=== PATIENT | female | born 1990 | race Caucasian/White ===

== ENCOUNTER → 2018-03-02 13:25 | Observation (INO) ==
[2018-03-02 08:36] LABS: Bilirubin,Urine Negative (Negative); Blood,Urine Negative (Negative); Clarity,Urine Cloudy (Clear); Color,Urine Yellow (Yellow); Glucose,Urine (UA) Normal (Normal); Ketones,Urine Negative (Negative); Leukocyte Esterase,Urine Large (Negative); Nitrite,Urine Negative (Negative); Protein,Urine Negative (Neg-Trace); Specific Gravity,Urine 1.006 (1.010-1.025); Urobilinogen,Urine Normal (Normal)
[2018-03-02 08:37] LABS: Bacteria,Urine Moderate per hpf (None-Few); Hyaline Casts,Urine None Seen per lpf (None-Few); RBC,Urine 0-3 per hpf (0-3); Squamous Epithelial Cell,Urine Many per lpf (None-Few); WBC,Urine TNTC per hpf (0-3)
[2018-03-02 08:45] LABS: Amphetamine Screen,Urine Negative ng/mL (Cutoff=1000); Barbiturate Screen,Urine Negative ng/mL (Cutoff=200); Benzodiazepines Screen,Urine Negative ng/mL (Cutoff=200); Cannabinoid Screen,Urine Negative ng/mL (Cutoff = 50); Cocaine Screen,Urine Negative ng/mL (Cutoff= 300); Opiate Screen,Urine Negative ng/mL (Cutoff=300); Phencyclidine Screen,Urine Negative ng/mL (Cutoff=25)
--- NOTE | 2018-03-02 09:12 | OB/GYN Progress Note ---
Date of Encounter: 03/02/18 Time of Encounter: 09:10 - Assessment and Plan (1) 29 weeks gestation of Current Visit: Yes Status: Acute Follow up as scheduled labor precautions given Discharge home (2) NST (non-stress test) reactive on surveillance Current Visit: Yes Status: Acute (3) uterine contractions in third trimester, antepartum Current Visit: Yes Status: Acute FFN: negative Fern negative Vaginosis panel: + for yeast Urine studies - UTI Antibiotics and vaginal antifungal cream (4) UTI (urinary tract infection) during Current Visit: Yes Status: Acute Macrobid 100mg BID x 5 days Qualifiers: Trimester: third trimester Qualified Code(s): O23.43 - Unspecified infection of urinary tract in , third trimester (5) Yeast infection of the vagina Current Visit: Yes Status: Acute Monistat 3-day treatment Subjective - Subjective Principal diagnosis: contractions Interval history: Ms. Ledesma is a 27 year old at 29 weeks gestation who presents who c/o contractions starting last night and continuing throughout the night. She states they are about 3-5 minutes apart and not painful but noticeable. She reports +FM and denies vb, lof. She sees Dr. Arita for her care. Antepartum ROS: new complaints, movement normal, contractions, no loss of fluid, no vaginal bleeding Objective - Vital Signs Vital Signs: Intake and Output 03/01/18 03/02/18 03/02/18 23:59 07:59 15:59 Other: Weight 69.4 kg Patient Weight 03/02/18 23:59 Weight 69.4 kg - Exam Auscultation: bilateral: normal Abdomen: Present: normal appearance, soft, gravid Uterus: Present: normal, firm Cervical dilation: 0 Cervix effacement: 30 station: -4 - Labs Labs: Abnormal lab results POC Glucose 111 mg/dL (70-99) H 03/02/18 08:13 Urine Clarity Cloudy (Clear) A 03/02/18 08:16 Ur Specific [place] 1.006 (1.010-1.025) L 03/02/18 08:16 Ur Leukocyte Esterase Large (Negative) H 03/02/18 08:16 Urine Microscopic WBC TNTC per hpf (0-3) H 03/02/18 08:16 Ur Squamous Epith Cells Many per lpf (None-Few) H 03/02/18 08:16 Urine Bacteria Moderate per hpf (None-Few) H 03/02/18 08:16 Ur Culture Indicated? NO. (NO) A 03/02/18 08:16
[2018-03-02 10:10] LABS: Candida DNA ***DETECTED*** (Not Detect); Gardnerella DNA Not Detected (Not Detect); Trichomonas DNA Not Detected (Not Detect)
[~2018-03-02 13:25] MED LIST: hydrOXYzine pamoate 25 MG CAPSULE PO STA
== END | disposition home or self-care (01) ==
LOC: 1NENULAB
PROVIDERS: ADMIT Student in an Organized Health Care Education/Training Program; ATTEND Student in an Organized Health Care Education/Training Program

== ENCOUNTER → 2018-04-05 19:20 | Observation (INO) ==
[2018-04-05 16:23] LABS: Bilirubin,Urine Negative (Negative); Blood,Urine Negative (Negative); Clarity,Urine Clear (Clear); Color,Urine Yellow (Yellow); Glucose,Urine (UA) Normal (Normal); Ketones,Urine Negative (Negative); Leukocyte Esterase,Urine Moderate (Negative); Nitrite,Urine Negative (Negative); PH,Urine 6.5 pH Units (5.0-8.0); Protein,Urine Negative (Neg-Trace); Specific Gravity,Urine 1.015 (1.010-1.025); Urobilinogen,Urine Normal (Normal)
[2018-04-05 16:24] LABS: Bacteria,Urine None Seen per hpf (None-Few); Hyaline Casts,Urine None Seen per lpf (None-Few); RBC,Urine 0-3 per hpf (0-3); Squamous Epithelial Cell,Urine Many per lpf (None-Few)
[2018-04-05 16:37] LABS: Amphetamine Screen,Urine Negative ng/mL (Cutoff=1000); Barbiturate Screen,Urine Negative ng/mL (Cutoff=200); Benzodiazepines Screen,Urine Negative ng/mL (Cutoff=200); Cannabinoid Screen,Urine Negative ng/mL (Cutoff = 50); Cocaine Screen,Urine Negative ng/mL (Cutoff= 300); Opiate Screen,Urine Negative ng/mL (Cutoff=300); Phencyclidine Screen,Urine Negative ng/mL (Cutoff=25)
--- NOTE | 2018-04-05 17:31 | OB/GYN Progress Note ---
Date of Encounter: 04/05/18 Time of Encounter: 17:27 - Assessment and Plan (1) 34 weeks gestation of Current Visit: Yes Status: Acute Continue routine PNC as scheduled labor precautions given Discharge home (2) uterine contractions in third trimester, antepartum Current Visit: Yes Status: Acute Increase hydration UA-negative Vaginosis panel- + for angélica - rx for clotrimazole cream given Subjective - Subjective Principal diagnosis: contractions Interval history: Ms. Ledesma is a 27-year-old at 34 weeks who presents with c/o contractions happening 3-10 minutes apart since last night. She endorses good fm and denies vb, lof. Antepartum ROS: movement normal, contractions, no loss of fluid, no vaginal bleeding Objective - Vital Signs Vital Signs: Intake and Output 04/05/18 04/05/18 04/05/18 07:59 15:59 23:59 Other: Weight 71.668 kg Patient Weight 04/05/18 23:59 Weight 71.668 kg - Exam FHR: category 1 FHR comments: RNST Auscultation: bilateral: normal Abdomen: Present: normal appearance, soft, gravid Uterus: Present: normal, firm Cervical dilation: FT per RN Cervix effacement: thick per RN station: -3 - Labs Labs: Abnormal lab results Ur Leukocyte Esterase Moderate (Negative) H 04/05/18 16:05 Urine Microscopic WBC 5-15 per hpf (0-3) H 04/05/18 16:05 Ur Squamous Epith Cells Many per lpf (None-Few) H 04/05/18 16:05 Ur Culture Indicated? NO. (NO) A 04/05/18 16:05
[~2018-04-05 19:20] MED LIST changes: +NIFEdipine XL (24 HR) 30 MG TAB.ER.24 PO SCH; -hydrOXYzine pamoate 25 MG CAPSULE PO STA
[2018-04-05 19:44] LABS: Candida DNA ***DETECTED*** (Not Detect); Gardnerella DNA Not Detected (Not Detect); Trichomonas DNA Not Detected (Not Detect)
== END | disposition home or self-care (01) ==
LOC: 1NENULAB
PROVIDERS: ADMIT Obstetrics & Gynecology; ATTEND Obstetrics & Gynecology

== ENCOUNTER 2018-04-20 01:41 | Inpatient (IN) ==
[~2018-04-20 01:41] MED LIST changes: +*HR* Nalbuphine 10 MG/ML AMPUL IVP PRN; +Famotidine 20 MG/2 ML VIAL IVP PRN; +Lidocaine 1% 20 ML MDV INFILT PRN; +Metoclopramide 10 MG/2 ML VIAL IVP PRN; -NIFEdipine XL (24 HR) 30 MG TAB.ER.24 PO SCH; +Naloxone 0.4 MG/ML INJ IVP PRN; +Ringers Solution, Lactated 1,000 ML IVC SCH
[2018-04-20 01:55] LABS: Amphetamine Screen,Urine Negative ng/mL (Cutoff=1000); Barbiturate Screen,Urine Negative ng/mL (Cutoff=200); Benzodiazepines Screen,Urine Negative ng/mL (Cutoff=200); Cannabinoid Screen,Urine Negative ng/mL (Cutoff = 50); Cocaine Screen,Urine Negative ng/mL (Cutoff= 300); Opiate Screen,Urine Negative ng/mL (Cutoff=300); Phencyclidine Screen,Urine Negative ng/mL (Cutoff=25)
[2018-04-20] MEDS ORDERED: Clindamycin 900 MG/50 ML 900 MG/50 ML IV.SOLN IVPB SCH (02:00)
[2018-04-20 02:39] LABS: Basophils % 0.2 %; Eosinophils # 0.2 K/mcL (0.0-0.6); Eosinophils % 1.4 %; Hematocrit 36.8 % (35.3-44.9); Immature Granulocytes % 1.1 % (0-4); Lymphocytes # 2.6 K/mcL (0.6-4.6); Lymphocytes % 17.1 %; Mean Corpuscular HGB Conc 35.3 g/dL (31.6-35.5); Mean Corpuscular Volume 87.8 fL (83.0-100.0); Mean Platelet Volume 9.3 fL (9.4-12.4); Monocytes # 1.1 K/mcL (0.0-1.3); Monocytes % 7.2 %; Neutrophils # 10.9 K/mcL (1.6-8.9); Platelet Count 228 K/mcL (140-400); Red Blood Count 4.19 M/mcL (3.82-4.97); Red Cell Distribution Width 12.9 % (11.5-14.5)
--- NOTE | 2018-04-20 02:56 | OB/GYN History & Physical ---
Date of Encounter: 04/20/18 Time of Encounter: 02:52 Assessment and Plan (1) 36 weeks gestation of Current visit: Yes Status: Acute (2) SROM (spontaneous rupture of membranes) Current visit: Yes Status: Acute Admit to labor and delivery Patient has started to have contractions we will do expectant management at this time GBS unknown will start vancomycin 1 g every 12 hours Patient may have intermittent monitoring Anticipate (3) GBS screening not performed Current visit: Yes Status: Acute History of Present Illness Chief complaint: SROM HPI: Ms. Ledesma is a 27 year old female 36+3 weeks gestation cents to triage with complaints of rupture membranes at 11:30 PM last night. Patient reports good movement, denies vaginal bleeding. Uncomplicated course with care of Dr. Arita. Labs: O-, rubella nonimmune, varicella immune, GBS unknown, all other serologies negative Past Med Surg Social Fam HX - Past Medical History Medical history: no medical history Psychiatric history: no psych history - Past Surgical History Surgical History: other Additional surgical history: wisdom teeth - Social History Smoking Status: Never smoker Alcohol use: none Drug use: none - Family History Mother Living Status: Still Living Hx Family Cardiac Disorders: No Hx Family Respiratory Disorders: No Hx Family Cancer: No Hx Family GI Disorders: No Hx Family Endocrine Disorder: No Hx Family Neuromuscular Disorders: No Hx Family Neurologic Disorders: No Hx Family HEENT Disorders: No Hx Family Autoimmune Disorders: No Obstetrical History - Pregnancies : 1 Para: 0 Term: 0 : 0 Ab's: 0 Livin Medications and Allergies Vit Calc,Iron,Folic [ Vitamins] 1 tab PO DAILY 03/02/18 [ History] 3 Allergy/AdvReac Type Severity Reaction Status Date / Time Amoxicillin Allergy Rash Verified 04/20/18 01:19 Exam - Constitutional Constitutional: well developed, well nourished, no acute distress, average body habitus - Neck Neck exam: full ROM - Lungs Respiratory exam: CTAB - Cardiovascular Cardiovascular exam: RRR - Abdomen Abdomen: Present: gravid, non tender - Extremities Extremities exam: normal capillary refill, normal inspection Results Result Diagrams: 04/20/18 02:10 Abnormal lab results WBC 14.9 K/mcL (4.3-11.1) H 04/20/18 02:10 MPV 9.3 fL (9.4-12.4) L 04/20/18 02:10 Neutrophils # 10.9 K/mcL (1.6-8.9) H 04/20/18 02:10 All other labs normal. - VTE Reasons for not Prescribing Prophylaxis: Treatment not Indicated - Low risk for VTE
--- NOTE | 2018-04-20 06:57 | Anesthesia Evaluation PreOp ---
Date of Encounter: 04/20/18 Time of Encounter: 06:49 - Past History Planned Operation: vaginal del, G1 SROM Cardiac History: Denies any Significant Hx Pulmonary History: Denies Any Significant HX MANUFACTURING PROCESS ENGINEER History: Denies Any Significant HX Other Medical History: Denies Any Significant HX Anesthesia History: No Prior Anesthetic Complications, Past Anesthesia (denies family hx.) Alcohol Use: none Drug use: none Medications and Allergies Vit Calc,Iron,Folic [ Vitamins] 1 tab PO DAILY 03/02/18 [ History] 3 Allergy/AdvReac Type Severity Reaction Status Date / Time Amoxicillin Allergy Rash Verified 04/20/18 01:19 Anesthesia Results - Labs 04/20/18 02:10 Anesthesia Exam - HEENT Pupil (Motor): Pupils equal Mallampati: II Teeth: Normal Oral Opening: Greater than 3 - MANUFACTURING PROCESS ENGINEER LOC: Oriented MANUFACTURING PROCESS ENGINEER Motor: Normal RUE, Normal LUE, Normal RLE, Normal LLE, Normal Face MANUFACTURING PROCESS ENGINEER Sensory: Normal: RUE, LUE, RLE, LLE, Face - Cardiac Rhythm: Regular Murmur: None - Pulmonary Breath Sounds: bilateral Clear Respiratory Effort: Symmetrical Anesthesia Assess/Plan ASA Score: 2 Modified [place] Scale for Level of Consciousness: Cooperative, oriented, and tranquil Anesthetic Plan: General, Regional Monitoring Plan: Standard Monitors Recovery Plan: PACU
[2018-04-20] MEDS ORDERED: EPHEDrine 50 MG/ML VIAL IVP PRN (06:58)
[2018-04-20] MEDS ORDERED: Epidural Premix (fent/bupiv) 110 ML EP SCH (07:00)
--- NOTE | 2018-04-20 09:08 | OB Labor Progress Note ---
Date of Encounter: 04/20/18 Time of Encounter: 09:06 Labor Progress Note - Subjective Subjective: Patient reports contractions feel like they are less intense. She would like cervical exam to be evaluated. Patient has been off monitors for intermittent monitoring - Cervix Cervix: 2/90/-1 - Heart Tones Heart Tones: 140 bpm - [place]: irregular per palpation - Interventions Interventions: SVE - Plan Plan: Continue labor management Will augment labor anticipate SVE
[2018-04-20] MEDS ORDERED: Oxytocin 20 units/ LR 1000 mL 20 UNIT/1,000 ML BAG IVC ONE (09:41)
[2018-04-20] MEDS ORDERED: Oxytocin 20 units/ LR 1000 mL 20 UNIT/1,000 ML BAG IVC SCH (10:00)
--- NOTE | 2018-04-20 12:00 | OB Labor Progress Note ---
Date of Encounter: 04/20/18 Time of Encounter: 11:58 Labor Progress Note - Subjective Subjective: Patient requesting FSE so she can move more in labor. Discussed risks and benefits. Patient denies any questions or concerns. - Cervix Cervix: 3.5/90/-1 - Heart Tones Heart Tones: 140 bpm moderate variability +15x15 accels no decels noted. Cat 1 tracing. - [place]: 2-3 min apart - Interventions Interventions: SVE, FSE applied. Patient tolerated well. - Plan Plan: continue labor management anticipate SVE
[2018-04-20] MEDS ORDERED: Lidocaine -MPF 1% 5 ML AMPUL ONE (14:12)
--- NOTE | 2018-04-20 14:50 | Anesthesia Procedures ---
Date of Encounter: 04/20/18 Time of Encounter: 14:49 Procedures: Anesthesia - Epidural/Spinal Patient ID/Chart reviewed: Yes Patient examined: Yes OB Eval: Gestational age: 36 OB Eval: : 1 OB Eval: Hx Para: 0 OB Eval: Dilated at (cm): 4 OB Eval: Contractions: Non-stressed pattern Consent Obtained: Yes Supplemental Oxygen: None/Room Air Site Prep: Aseptic Technique, Sterile prep and drape, Povidone-Iodine 1% Patient position: upright Local Anesthetic: Lidocaine 1% Amount of Local Anesthetic used: 3 Touhy Needle Gauge: 18 Touhy Needle Depth (cm): 8 Catheter Depth at Skin (cm): 20 Test Dose (1.5% Lido + Epi): Volume given (mls): 5 Test Dose Result: Negative Loading Dose: Other: 10mls of epidural pharm bag premix Loading Dose Administered: Thru Touhy Needle Infusion Med: 0.125% Bupivacaine w/ 2 mcg/ml Fentanyl Infusion Rate (mls/hr): 15 ([id number]) Catheter Secured in Place: Tegaderm, Tape Interspace Used: L4-L5 Loss of Resistance (IZZY): Yes Blood: No CSF: No Paresthesia: No Procedure: pt tolerated procedure well. no complications. vss. fhr stable.
--- NOTE | 2018-04-20 15:46 | OB Labor Progress Note ---
Date of Encounter: 04/20/18 Time of Encounter: 15:44 Labor Progress Note - Subjective Subjective: Patient resting comfortable with epidural in place. Grijalva catheter draining clear yellow urine. - Cervix Cervix: 7/100/0 - Heart Tones Heart Tones: 125 bpm moderate variability +15x15 accels no decels noted. Cat. 1 tracing. - [place]: 2-2.5 min apart - Interventions Interventions: SVE, Patient repositioned with peanut ball. - Plan Plan: Continue labor management. anticipate
--- NOTE | 2018-04-20 20:41 | OB/GYN Procedure Note ---
Delivery - Delivery Date: 04/20/18 Provider: Noelle Camara Intrapartum events: none, prolonged labor- > = 20hr Delivery induction: none Delivery augmentation: pitocin Delivery monitor: external FHT, external uterine, internal FHT Anesthesia: epidural Quantitated Blood Loss: 200 - Infant (s) Infant A Infant Delivery Date: 04/20/18 Delivery Time: 20:18 Presentation: vertex Position: LUCI Route of delivery: Gender: Female Viability: Viable Pounds: 6 Ounces: 7 Weight Gram: 2029 kg at 1 minute: 8 at 5 mins: 9 Shoulder Dystocia: not encountered Specimens collected: cord blood Placenta: spontaneous Cord: 3 umbilical vessels - Repair Episiotomy: none Laceration Description: Periurethral (Right periurethral repaired with 4-0 Vicryl) - Complications Delivery complications: none - Disposition Mom disposition: stable in LDR disposition: stable in LDR - Comments Comments: Patient progressed to complete and began pushing to viable female infant in the LUCI position. No shoulder encountered, no nuchal cord. scores 8 at one minute and 9 at five minutes, weight 6 pounds 7 ounces. placed on maternal abdomen, dried, warmed and stimulated with good cry. Cord double clamped and cut with assistance from father of the baby after pulsations ceased. Placenta delivered intact with three vessel cord. Upon perineal inspection a right periurethral laceration was found and repaired with 40 vicryl. Fundus firm and at the umbilicus, distended to right side with minimal bleeding. EBL 200 ml. Infant placed skin to skin, mother and infant stable in recovery.
[2018-04-21] MEDS ORDERED: Acetaminophen 325 MG TABLET PO PRN (00:24)
[2018-04-21] MEDS ORDERED: Measles/Mumps/Rubella Vacc 0.5 ML VIAL SQ PRN (00:24)
[2018-04-21] MEDS ORDERED: Lanolin 7 G OINT...G. TP PRN (00:24)
[2018-04-21] MEDS ORDERED: Ibuprofen 600 MG TABLET PO PRN (00:24)
[2018-04-21] MEDS ORDERED: Oxytocin 20 units/ LR 1000 mL 20 UNIT/1,000 ML BAG IVC SCH (00:24)
[2018-04-21] MEDS ORDERED: Rho Immune Globulin 1,500 UNIT SYRINGE IM PRN (00:24)
[2018-04-21 08:20] VITALS: BP 109/73
[2018-04-21] MEDS ORDERED: Prenatal Vit/FA 1 EACH TABLET PO SCH (09:00)
--- NOTE | 2018-04-21 11:00 | Discharge Summary ---
Date of Encounter: 04/21/18 Time of Encounter: 10:57 - Discharge Diagnosis (1) Vaginal delivery Priority: Primary Status: Acute Comments: Pain well controlled with by mouth pain meds Tolerating regular diet Ambulating independently Voiding independently Passing flatus but no BM yet Lochia light Discharge to guest today (2) Breast feeding status of mother Priority: Secondary Status: Acute Comments: Community resources provided - Discharge Medications Prescriptions: Ibuprofen [Motrin] 600 mg PO Q6HR PRN #30 tablet PRN Reason: Cramping Docusate [Colace] 100 mg PO BID #30 capsule Lanolin [Lansinoh] 1 appl TP TID PRN #1 tube PRN Reason: Sore Nipples Home Medications: Vit Calc,Iron,Folic [ Vitamins] 1 tab PO DAILY 03/02/18 [ History] Acetaminophen [Tylenol] 650 mg PO Q6HR PRN tablet 04/21/18 [Rx] Docusate [Colace] 100 mg PO BID #30 capsule 04/21/18 [Rx] Ibuprofen [Motrin] 600 mg PO Q6HR PRN #30 tablet 04/21/18 [Rx] Lanolin [Lansinoh] 1 appl TP TID PRN #1 tube 04/21/18 [Rx] Allergies/Adverse Reactions: 3 Allergy/AdvReac Type Severity Reaction Status Date / Time Amoxicillin Allergy Rash Verified 04/20/18 01:19 Data Procedures and tests throughout hospitalization: Laboratory Tests 04/20/18 04/20/18 04/20/18 01:30 02:10 21:05 WBC 14.9 H RBC 4.19 Hgb 13.0 Hct 36.8 MCV 87.8 MCH 31.0 MCHC 35.3 RDW 12.9 Plt Count 228 MPV 9.3 L Immature Gran % 1.1 Seg Neutrophils % 73.0 Lymphocytes % 17.1 Monocytes % 7.2 Eosinophils % 1.4 Basophils % 0.2 Neutrophils # 10.9 H Lymphocytes # 2.6 Monocytes # 1.1 Eosinophils # 0.2 Basophils # 0.0 Urine Opiates Screen Negative Ur Barbiturates Screen Negative Ur Phencyclidine Scrn Negative Ur Amphetamines Screen Negative U Benzodiazepines Scrn Negative Urine Cocaine Screen Negative U Marijuana (THC) Screen Negative Ur Drug Screen Interp See Below Baby's Blood Type O RH NEGATIVE Mother's Blood Type O RH NEGATIVE Rhogam Indicated NO Labs on day of discharge: Labs from last 24 hours 04/20/18 21:05 Baby's Blood Type O RH NEGATIVE Mother's Blood Type O RH NEGATIVE Rhogam Indicated NO Date of admission: 04/20/18 01:41 Consults: 04/21/18 00:24 Consult to Procurement Assistant [CONS] Routine Comment: Vaginal delivery, consult needed Discharging clinician: Radha Morales Anticipated date of discharge: 04/21/18 - Patient Status Disposition: Home, Self-Care Condition: Good Functional capacity at discharge: independent ambulation Overall status at discharge: patient is progressing back to baseline - Discharge Instructions Follow Up With: Thaddeus Arita DO [Partnered Physician] - - Diet and Activity Activity: increase activity as tolerated Diet: regular diet Hospital Course Reason for admission: IUP - , rupture of membranes, IUP at term Delivery: Episiotomy: none Laceration: other Other procedures: none complications: none Discharge diagnosis: delivery [place] baby: female Time Attestation: Total time spent providing and/or coordinating discharge services: Time Spent: Less than 30 minutes Exam - Constitutional Vitals: Temp Pulse Resp BP Pulse Ox 98.4 F 83 16 109/73 97 04/21/18 08:19 04/21/18 08:19 04/21/18 09:44 04/21/18 08:19 04/21/18 04:18 General appearance IM: A&O X 3 - Respiratory Respiratory exam: Present: CTAB - Cardiovascular Cardiovascular exam IM: Present: RRR, +S1, +S2 - GI/Abdominal GI/Abdominal exam IM: normal bowel sounds, no peritoneal signs - Rectal Rectal exam: deferred - Uterine Tone: Firm Uterus Position: At Umbilicus, Midline - Extremities Exam Extremities exam IM: Present: normal capillary refill, normal inspection, radial pulses palpable and symmetrical - Neurological Exam Neurological exam: alert, CN II-XII intact, normal gait, oriented X3, reflexes normal, no focal deficits, strengths equal and symetr throughout - Psychiatric Additional comments: Patient denies history of depression. Signs and symptoms of depression discussed with patient and partner and they verbalized understanding of when to seek help. - Other Additional findings: Breasts: Nipples soft, nontender. Intact without erythema
== END 2018-04-21 13:30 | disposition home or self-care (01) | DRG 775 ==
LOC: 1NENULAB → 1NENUOBS 23:25
PROVIDERS: ADMIT Advanced Practice Midwife; ATTEND Advanced Practice Midwife

== ENCOUNTER 2019-07-02 01:51 | Inpatient (IN) ==
[~2019-07-02 01:51] MED LIST changes: -Lidocaine 1% 20 ML MDV INFILT PRN; -Ringers Solution, Lactated 1,000 ML IVC SCH
[2019-07-02] MEDS ORDERED: Ringers Solution, Lactated 1,000 ML IVC SCH (02:00)
[2019-07-02 02:17] LABS: Basophils % 0.2 %; Eosinophils # 0.2 K/mcL (0.0-0.6); Eosinophils % 0.9 %; Hematocrit 35.8 % (35.3-44.9); Hemoglobin 12.6 g/dL (11.5-15.4); Immature Granulocytes % 0.6 % (0-4); Lymphocytes # 2.9 K/mcL (0.6-4.6); Lymphocytes % 18.2 %; Mean Corpuscular HGB Conc 35.2 g/dL (31.6-35.5); Mean Corpuscular Hemoglobin 30.7 pg (28.0-33.3); Mean Corpuscular Volume 87.1 fL (83.0-100.0); Mean Platelet Volume 9.2 fL (9.4-12.4); Monocytes # 1.1 K/mcL (0.0-1.3); Monocytes % 6.7 %; Neutrophils # 11.6 K/mcL (1.6-8.9); Platelet Count 224 K/mcL (140-400); Red Blood Count 4.11 M/mcL (3.82-4.97); Red Cell Distribution Width 12.9 % (11.5-14.5); Segmented Neutrophils % 73.4 %; White Blood Count 15.8 K/mcL (4.3-11.1)
--- NOTE | 2019-07-02 04:11 | OB/GYN History & Physical ---
Date of Encounter: 07/02/19 Time of Encounter: 04:19 Assessment and Plan (1) 40 weeks gestation of Current visit: Yes Status: Acute Admit for delivery (2) NST (non-stress test) reactive Current visit: Yes Status: Acute Category I FHR tracing (3) Blood type O- Current visit: Yes Status: Acute Collect cord blood and Rhogam evaluation (4) GBS (group B Streptococcus carrier), +RV culture, currently Current visit: Yes Status: Acute One dose Vancomycin given prior to delivery. History of Present Illness Chief complaint: Labor at 40w1d HPI: Ms. Ledesma is a 28 year old female at 40w1d who presents this morning in labor. She reports positive movement and denies fluid leakage and reports some bloody show since her appointment in the office yesterday. She is 6-7 cm on arrival. Blood type O- GBS positive with allergy to Amoxicillin - Vancomycin sensitive HbSAG negative Rubella Non-Immune Varicella Immune Past Med Surg Social Fam HX - Past Medical History Source: patient Medical history: no medical history Psychiatric history: no psych history - Past Surgical History Surgical History: other Additional surgical history: wisdom teeth - Social History Smoking Status: Never smoker Alcohol use: none Drug use: none Current living situation: Home - Independent Activity Level: Independent ambulation Recent Out of Country Travel Within the Last 8 Weeks: No Exposure or Possible Exposure to Illness During Travel: No - Family History Mother Living Status: Still Living Hx Family Cardiac Disorders: No Hx Family Respiratory Disorders: No Hx Family Cancer: No Hx Family GI Disorders: No Hx Family Endocrine Disorder: No Hx Family Neuromuscular Disorders: No Hx Family Neurologic Disorders: No Hx Family HEENT Disorders: No Hx Family Autoimmune Disorders: No Obstetrical History - Pregnancies : 2 Para: 1 Term: 1 : 0 Ab's: 0 Livin Medications and Allergies Vit Calc,Iron,Folic [ Vitamins] 1 tab PO DAILY 03/02/18 [History] Allergy/AdvReac Type Severity Reaction Status Date / Time Amoxicillin Allergy Rash Verified 07/02/19 01:36 Exam - Constitutional Constitutional: well developed, well nourished, no acute distress, average body habitus - HEENT HEENT: Normocephaly, Mucus Membranes Moist - Neck Neck exam: full ROM - Lungs Respiratory exam: CTAB - Cardiovascular Cardiovascular exam: RRR, +S1, +S2 - Breasts Breast: bilateral: normal - Abdomen Abdomen: Present: bowel sounds normal, gravid, non tender - Extremities Extremities exam: full ROM, normal capillary refill, normal inspection Deep Tendon Reflex Grade: 2+ Normal - Vulva Vulva: bilateral: normal - Vagina Vagina: Present: normal moisture - Cervix Dilation: 6 (Per RN exam) Station: -1 - Uterus Uterus exam: Present: normal size - Anus/Rectum Anus/Rectum: Present: normal perianal skin Results Result Diagrams: 07/02/19 02:02 Abnormal lab results WBC 15.8 K/mcL (4.3-11.1) H 07/02/19 02:02 MPV 9.2 fL (9.4-12.4) L 07/02/19 02:02 Neutrophils # 11.6 K/mcL (1.6-8.9) H 07/02/19 02:02 All other labs normal. - VTE Reasons for not Prescribing Prophylaxis: Treatment not Indicated - Low risk for VTE
[2019-07-02] MEDS ORDERED: Oxytocin 20 units/ LR 1000 mL 20 UNIT/1,000 ML BAG IVC ONE ×2 (04:19→06:51)
[2019-07-02 05:07] LABS: Rubella IgG Antibody Negative (POSITIVE); Varicella Zoster IgG Antibody Positive
[2019-07-02] MEDS ORDERED: Ibuprofen 600 MG TABLET PO ONE (05:58)
[2019-07-02 06:02] LABS: HIV-1&2 Antibody & p24 Ag Nonreactive (Nonreactive)
--- NOTE | 2019-07-02 06:10 | OB/GYN Procedure Note ---
Delivery - Delivery Date: 07/02/19 Provider: Dorys Spencer (Francis Mondragon DO PGY1) Intrapartum events: none Delivery induction: none Delivery augmentation: rupture of membranes Delivery monitor: external FHT, external uterine Anesthesia: local Quantitated Blood Loss: 300 - (s) A Infant Delivery Date: 07/02/19 Delivery Time: 05:12 Presentation: vertex Position: LUCI Route of delivery: Gender: Female Viability: Viable Pounds: 7 Ounces: 12 Weight Gram: 3.51 kg at 1 minute: 8 at 5 mins: 9 Shoulder Dystocia: not encountered Specimens collected: cord blood Placenta: spontaneous Cord: 3 umbilical vessels - Repair Episiotomy: none Laceration Description: Perineal - 2nd Degree - Complications Delivery complications: none Delivery comments: Called to room for patient with urge to push. She was ambulating in room and pushing involuntarily. SVE was 8 cm, patient was placed in hands and knees and she rapidly progressed to complete dilation. She requested an epidural but once DRIVER'S EDUCATION INSTRUCTOR arrived she was complete and she declined stating she just wanted to deliver. I was gowned and gloved and together with Francis Mondragon DO PGY1, delivered viable female over second-degree perineal laceration, repaired with 3-0 Vicryl. Infant placed on maternal abdomen for drying and stimulation. Cord clamped and cut after pulsation ceased. Spontaneous delivery of intact placenta, EBL 300 mL's. No nuchal cord, shoulder dystocia, or meconium encountered. Mother and in kangaroo care for 2 hour recovery. - Disposition Mom disposition: stable in LDR [place] disposition: stable in LDR
[2019-07-02] MEDS ORDERED: Benzocaine/Menthol 56 GM AEROSOL SPRAY TP PRN (07:57)
[2019-07-02] MEDS ORDERED: Lanolin 7 G OINT...G. TP PRN (07:57)
[2019-07-02] MEDS ORDERED: Oxytocin 20 units/ LR 1000 mL 20 UNIT/1,000 ML BAG IVC SCH (07:57)
[2019-07-02] MEDS ORDERED: Rho Immune Globulin 1,500 UNIT SYRINGE IM PRN (07:57)
[2019-07-02] MEDS ORDERED: Acetaminophen 325 MG TABLET PO PRN (07:57)
[2019-07-02] MEDS ORDERED: *HR* HYDROcodone/Acet 5/325 mg TABLET PO PRN (07:57)
[2019-07-02] MEDS: Prenatal Vit/FA 1 EACH TABLET PO SCH (11:25)
[2019-07-02] MEDS: Ibuprofen 600 MG TABLET PO PRN ×2 (11:57→19:35)
[2019-07-03] MEDS: Prenatal Vit/FA 1 EACH TABLET PO SCH (08:26)
[2019-07-03] MEDS ORDERED: Measles/Mumps/Rubella Vacc 0.5 ML VIAL SQ ONE (08:33)
[2019-07-03 09:28] VITALS: BP 114/74
--- NOTE | 2019-07-03 13:11 | Event Note ---
Date of Encounter: 07/03/19 Time of Encounter: 13:10 Curing Finisher entered room to find that patient had left prior to discharge examination.
== END 2019-07-03 12:01 | disposition home or self-care (01) | DRG 807 ==
LOC: 1NENULAB → 1NENUOBS 07:45
PROVIDERS: ADMIT Registered Nurse; ATTEND Registered Nurse

== ENCOUNTER 2022-01-23 04:22 | Inpatient (IN) ==
[~2022-01-23 04:22] MED LIST changes: -*HR* Nalbuphine 10 MG/ML AMPUL IVP PRN
[2022-01-23] MEDS ORDERED: Clindamycin 900 MG/50 ML 900 MG/50 ML IV.SOLN IVPB SCH (04:30)
[2022-01-23] MEDS ORDERED: Ringers Solution, Lactated 1,000 ML ONE (04:34)
[2022-01-23 05:18] LABS: Amphetamine Screen,Urine Negative ng/mL (Cutoff=1000); Barbiturate Screen,Urine Negative ng/mL (Cutoff=200); Basophils % 0.2 %; Benzodiazepines Screen,Urine Negative ng/mL (Cutoff=200); Cannabinoid Screen,Urine Negative ng/mL (Cutoff = 50); Cocaine Screen,Urine Negative ng/mL (Cutoff= 300); Eosinophils # 0.1 K/mcL (0.0-0.6); Eosinophils % 0.8 %; Hematocrit 39.4 % (35.3-44.9); Hemoglobin 13.6 g/dL (11.5-15.4); Immature Granulocytes % 0.8 % (0-4); Lymphocytes # 2.2 K/mcL (0.6-4.6); Lymphocytes % 15.2 %; Mean Corpuscular HGB Conc 34.5 g/dL (31.6-35.5); Monocytes # 0.8 K/mcL (0.0-1.3); Monocytes % 5.5 %; Opiate Screen,Urine Negative ng/mL (Cutoff=300); Phencyclidine Screen,Urine Negative ng/mL (Cutoff=25); Platelet Count 243 K/mcL (140-400); Red Blood Count 4.53 M/mcL (3.82-4.97); Red Cell Distribution Width 13.3 % (11.5-14.5); Segmented Neutrophils % 77.5 %; White Blood Count 14.2 K/mcL (4.3-11.1)
[2022-01-23 05:51] LABS: Influenza A PCR Negative (Negative); Influenza B PCR Negative (Negative); Resp. Syncytial Virus PCR Negative (Negative)
[2022-01-23 05:52] LABS: SARS-CoV-2 by PCR (In House) Negative (Negative)
[2022-01-23] MEDS ORDERED: Oxytocin 30 UNIT/503 ML BAG IVC ONE (07:18)
[2022-01-23] MEDS ORDERED: Oxytocin 30 UNIT/503 ML BAG IVC SCH (08:37)
[2022-01-23] MEDS ORDERED: Lanolin 7 G OINT...G. TP PRN (08:37)
[2022-01-23] MEDS ORDERED: Rho Immune Globulin 1,500 UNIT SYRINGE IM PRN (08:37)
[2022-01-23] MEDS ORDERED: Ondansetron ODT 4 MG TAB.RAPDIS SL PRN (08:37)
[2022-01-23] MEDS ORDERED: Prenatal Vit/FA 1 EACH TABLET PO SCH (09:00)
[2022-01-23] MEDS: Benzocaine/Menthol 56 GM AEROSOL SPRAY TP PRN (10:30)
[2022-01-23] MEDS: Acetaminophen 325 MG TABLET PO SCH ×2 (10:30→15:54)
[2022-01-23] MEDS: Ibuprofen 600 MG TABLET PO SCH ×2 (10:30→19:37)
[2022-01-24] MEDS: Ibuprofen 600 MG TABLET PO SCH ×2 (01:44→07:48)
[2022-01-24 02:02] VITALS: TEMP 97.9; O2SAT 98
[2022-01-24 05:24] LABS: Basophils % 0.2 %; Eosinophils # 0.2 K/mcL (0.0-0.6); Eosinophils % 1.4 %; Hematocrit 33.1 % (35.3-44.9); Immature Granulocytes % 0.7 % (0-4); Lymphocytes # 3.2 K/mcL (0.6-4.6); Lymphocytes % 21.5 %; Mean Corpuscular HGB Conc 34.7 g/dL (31.6-35.5); Mean Corpuscular Hemoglobin 31.1 pg (28.0-33.3); Mean Corpuscular Volume 89.5 fL (83.0-100.0); Mean Platelet Volume 9.2 fL (9.4-12.4); Monocytes # 0.9 K/mcL (0.0-1.3); Monocytes % 6.3 %; Neutrophils # 10.3 K/mcL (1.6-8.9); Platelet Count 224 K/mcL (140-400); Red Cell Distribution Width 13.7 % (11.5-14.5); Segmented Neutrophils % 69.9 %; White Blood Count 14.7 K/mcL (4.3-11.1)
[2022-01-24 05:26] LABS: Hemoglobin 11.5 g/dL (11.5-15.4)
[2022-01-24 07:43] VITALS: BP 114/69; PULSE 85
[2022-01-24] MEDS: Acetaminophen 325 MG TABLET PO SCH (07:49)
[2022-01-24] MEDS: Benzocaine/Menthol 56 GM AEROSOL SPRAY TP PRN (07:49)
== END 2022-01-24 11:47 | disposition home or self-care (01) | DRG 807 ==
LOC: 1NENULAB → 1NENUOBS 10:26
PROVIDERS: ADMIT Advanced Practice Midwife; ATTEND Advanced Practice Midwife